=== PATIENT | female | born 1975 | race Two or more races ===

== ENCOUNTER → 2024-10-27 | Outpatient (CLI) | payer BC, SELFPAY ==
--- NOTE | 2024-10-27 10:00 | XR_ITS ---
Examination: Abdomen sonogram, complete Date and time of exam: October 27, 2024 1009 hours INDICATIONS: Diagnosis maternal obesity. Technique: Multiple real-time grayscale transabdominal sonographic images of the abdomen have been obtained. Findings: Absent gallbladder Normal common bile duct 0.5 cm Pancreatic head 2.3 cm Aorta not enlarged. Liver 15.0 cm fatty infiltration Normal hepatopedal portal venous flow Patent IVC Right kidney 9.7 cm cortex 1.7 cm Left kidney 9.2 cm cortex 2.4 cm Mild irregular contour Spleen 10.2 cm IMPRESSION: Normal common bile duct Liver normal size fatty infiltration
== END | disposition home or self-care (01) ==
PROVIDERS: PCP Surgery; Referring Provider Surgery; Visit Provider Surgery
DX: K76.0 Fatty (change of) liver, not elsewhere classified (principal)
CPT/HCPCS: 76700

== ENCOUNTER → 2024-11-08 | Outpatient (CLI) | payer BC, SELFPAY ==
--- NOTE | 2024-11-08 09:23 | XR_ITS ---
Examination: Esophagram standard Upright PA chest single view Upright soft tissue lateral neck single view Fluoroscopy 19 spot fluoroscopic films of the esophagus Date and time: November 08, 2024 0945 hours INDICATIONS: Preop gastric bypass FINDINGS: Upright PA chest single view demonstrates mild enlargement left ventricle No pneumonia or pulmonary edema Soft tissue lateral neck demonstrates moderate degenerative disc disease C5-C6 Normal epiglottis Primary peristaltic esophageal waves noted No gastroesophageal reflux No constricting esophageal lesion IMPRESSION: Negative esophagram Fluoroscopy 0.15 minutes 19 spot fluoroscopic films of the esophagus
== END | disposition home or self-care (01) ==
PROVIDERS: PCP Internal Medicine; Referring Provider Surgery; Visit Provider Surgery
DX: Z01.818 Encounter for other preprocedural examination (principal); E66.01 Morbid (severe) obesity due to excess calories; E66.812 Obesity, class 2; G47.19 Other hypersomnia; R06.83 Snoring
CPT/HCPCS: 74220; A4649